=== PATIENT | male | born 1975 | race Caucasian/White ===

== ENCOUNTER 2023-01-31 15:27 | Emergency (ER) | payer BC, SELFPAY ==
[2023-01-31 15:29] VITALS: BP 165/95; PULSE 106; RESP 18; TEMP 36.4; O2SAT 98; BMI 33.3
--- NOTE | 2023-01-31 15:43 | CT_ITS ---
STUDY: CT ABDOMEN AND PELVIS WITHOUT CONTRAST REASON FOR EXAM: Male, 47 years old. Kidney Stone RADIATION DOSAGE (If Supplied By Facility): CTDIvol = ( 11.24 ) mGy, DLP = ( 606.72 ) mGycm TECHNIQUE: Transaxial images were obtained from the dome of the diaphragm to the symphysis pubis without oral contrast, and without intravenous contrast. Sagittal and coronal images were reconstructed. Individualized dose optimization techniques were used for this CT. COMPARISON: None. FINDINGS: The visualized lung bases are unremarkable. The visualized portions of the heart are within normal limits. Mild hepatic enlargement. There is mild hepatic steatosis. Normal gallbladder and extrahepatic biliary system. There is mild to moderate splenomegaly. Normal pancreas. Normal bilateral adrenal glands. There is moderate right hydronephrosis. There is moderate right renal edema. There is a distended appearance of the right ureter. At the level of the ureterovesicular junction at the level of the wall of the bladder there is a stone measuring 5.1 x 5.2 mm. Normal left kidney. There is a small hiatal hernia. Normal small intestine. There is mild to moderate stool in the colon. The appendix is visualized and appears normal. Normal abdominal aorta. Normal inferior vena cava. Normal retroperitoneum. As mentioned above there is a stone measuring 5.1 x 5.2 mm just at the level of the bladder in the ureterovesicular junction. Normal visualized prostate gland. There is a small umbilical hernia containing fat. At L5-S1 there is a broad disc bulge with mild neural foramina narrowing mild central stenosis. CT/Abdomen/Pelvis without Cont IMPRESSION: Moderate right renal edema. Moderate right hydronephrosis. 5.1 x 5.2 mm calculus right ureterovesicular junction. Enlarged liver and spleen. Fatty infiltration of the liver. No appendicitis. Degenerative change L5-S1. Electronically Signed: Isabella Richardson MD at 16:34 EDT Reading Location ID and State: [facility] [place] / [place] Tel , Service support ,
--- NOTE | 2023-01-31 15:44 | EX.ED.DYSGE1 ---
HPI History of Present Illness Chief Complaint: Flank Pain Informant: patient Narrative Narrative: 47-year-old male presenting to the emergency room with chief complaint of right flank pain. Patient states that about a month ago he was on vacation in the [facility] and developed right flank pain and was diagnosed with a 2 mm distal ureteral stone. He states this is his first stone and he passed it subsequently. He was told at that time he had another stone in the right kidney. Beginning on Monday he has had pain in the right flank radiating towards the right middle quadrant. He states it comes and goes sometimes dull and aching sometimes sharp stabbing. He did have some nausea. He did a televisit and was prescribed ketorolac. This is helped at times. He also has been taking a nausea medication which she does not remember the name of as well as Flomax. He denies any fever. No blood in the urine urinary frequency or dysuria. No reported diarrhea. He has had no prior surgeries. [facility] Medical History (Updated 01/31/23 @ 16:[address] Emmanuel Horne DO) Kidney stone on right side Home Medications No Known/Unobtainable [No Known Home Medications] 01/06/16 [History Last Taken Unknown] oxycodone-acetaminophen 5 mg-325 mg tablet 1 tab PO Q6H PRN PRN Pain 3 days #12 TABLETS 01/31/23 [Rx Last Taken Unknown] Allergy/AdvReac Type Severity Reaction Status Date / Time No Known Allergies Allergy Verified 01/31/23 15:29 Surgical History no surgical history no surgical history Social History Smoking Status: Never smoker ROS ROS ED Constitutional Constitutional ED: Denies chills or weight loss Eyes Eyes: Denies change in vision or diplopia ENT ENT ED: Denies ear pain, rhinorrhea or sore throat Cardiovascular Cardiovascular: Denies chest pain, orthopnea, palpitations or racing heartbeat Respiratory/Chest Respiratory/Chest: Denies cough, dyspnea or orthopnea Gastrointestinal Gastrointestinal: Reports abdominal pain and nausea; Denies diarrhea or vomiting Genitourinary Genitourinary ED: Denies dysuria, hematuria or urinary frequency Musculoskeletal Musculoskeletal: Reports back pain; Denies arthralgias or myalgias Integumentary Denies abscess or rash Neurologic Neurologic: Denies headache(s) or weakness Psychiatric Psychiatric: Denies anxiety, depression, suicidal ideation or suicidal thoughts Endocrine Endocrinology: Denies polydipsia, polyphagia or polyuria Allergic/Immunologic Allergic/Immunologic ED: Denies mouth swelling, tongue swelling or urticaria EXAM Physical Exam Const Vital Signs: 01/31/23 15:29 Temperature 97.5 F L Temperature Source Temporal Pulse Rate 106 H Respiratory Rate 18 Blood Pressure 165/95 H Blood Pressure Mean 118 Pulse Ox 98 Oxygen Delivery Method Room Air Positive well nourished and well developed General Appearance ED: well developed HEENT Reports normocephalic, head/scalp atraumatic and moist mucous membranes Eyes PERRL and EOMs intact bilaterally Neck no lymphadenopathy, supple and no JVD Resp normal respiratory effort and clear to auscultation bilaterally Cardio regular rate, regular rhythm and no murmurs GI normal to inspection, nondistended, normoactive bowel sounds and non-tender Palpation: soft Back/Spine no CVA tenderness and normal ROM Extremity normal to inspection General Extremety ED: Negative for edema General Extremity: Negative for edema Neuro oriented x3 and CN's II-XII intact bilaterally Sensorium / Orientation: alert Motor Exam: strength 5/5 throughout Psych mental status grossly normal Mood & Affect: Negative for depressed or tearful Skin no rashes or lesions noted and no wounds MDM MDM MDM Narrative Medical decision making narrative: IV was established the patient received Toradol morphine and Zofran. Basic blood work showed a elevation of his creatinine of 1.98 most likely due to hydronephrosis and possibly used to ketorolac at home. CT demonstrates a distal 5 mm stone with associated hydronephroureter. Patient overall feels improved. I am going to write for him to have Percocet at home. He has Flomax and nausea medications already. I advised him to discontinue the ketorolac. I would recommend urologic follow-up. Return if worsening or concerns Lab Data Attestation: I reviewed the patient's lab results. Labs: Laboratory Results - last 24 hr 01/31/23 01/31/23 15:50 16:39 WBC 7.7 RBC 4.68 Hgb 13.8 Hct 41.6 MCV 88.9 MCH 29.5 MCHC 33.2 RDW Std Deviation 38.4 RDW Coeff of Celia 12.0 Plt Count 190 MPV 9.3 Immature Gran % (Auto) 0.400 Neut % (Auto) 78.0 H Lymph % (Auto) 10.1 L Andrews % (Auto) 10.4 H Eos % (Auto) 0.7 Baso % (Auto) 0.4 Absolute Neuts (auto) 6.0 Absolute Lymphs (auto) 0.78 L Nucleated RBC % 0 Sodium 138 Potassium 4.0 Chloride 104 Carbon Dioxide 30.0 Anion Gap 4 L BUN 19 H Creatinine 1.98 H Estim Creat Clear Calc 42.52 Est GFR (MDRD) Af Amer 47 L Est GFR (MDRD) Non-Af 39 L BUN/Creatinine Ratio 9.6 L Glucose 116 H Calcium 8.8 Urine Color Yellow Urine Clarity Sl. Cloudy Urine pH 6.0 Ur Specific [place] 1.020 Urine Protein 15 H Urine Glucose (UA) Normal Urine Ketones Negative Urine Occult Blood 10 H Urine Nitrite Negative Urine Bilirubin Negative Urine Urobilinogen Normal Ur Leukocyte Esterase Negative Urine RBC 0-5 SEEN Urine WBC 0 SEEN Ur Squamous Epith Cells 0 SEEN Urine Bacteria 0 SEEN Urine Mucus 0 SEEN Radiography Diagnostic Testing: Clinical Impression(s) from Imaging Studies Abdomen/Pelvis CT 01/31/23 15:43 IMPRESSION: Moderate right renal edema. Moderate right hydronephrosis. 5.1 x 5.2 mm calculus right ureterovesicular junction. Enlarged liver and spleen. Fatty infiltration of the liver. No appendicitis. Degenerative change L5-S1. Electronically Signed: Isabella Richardson MD at 16:34 EDT Reading Location ID and State: [address] [place] [address] Tel , Service support , Discharge Plan Triage Chief Complaint: Flank Pain ED Provider: Emmanuel Horne Dx/Rx/DC Orders Clinical Impression: Acute kidney injury, Ureterolithiasis, Renal colic on right side Instructions: ED Kidney Stone w/ Colic Prescriptions: New oxycodone-acetaminophen [oxycodone-acetaminophen] 5-325 mg tablet 1 tab PO Q6H PRN PRN (Reason: Pain) 3 Days Qty: 12 0RF No Action No Known Home Medications Primary Care Provider: Ashutosh Barakat Referrals: Kareem Foreman MD [Med Staff - Active Staff] - As soon as possible Care Physician,No Primary [Non-Staff] - Disposition Disposition: Home, Self Care
[2023-01-31] MEDS: Ondansetron 4 MG/2 ML Vial IV (15:49)
[2023-01-31] MEDS: Morphine 4 MG/ML Syringe IV (15:49)
[2023-01-31] MEDS: Ketorolac 30 MG/ML Syringe IV (15:49)
[2023-01-31 15:59] LABS: Absolute Lymphocyte Count 0.78 X10^3/uL (0.83-4.51); Basophil# 0.03 X10^3/uL; Basophil% 0.4 % (0-1); Eosinophil# 0.05 X10^3/uL; Eosinophils% 0.7 % (0-5); Hematocrit 41.6 % (40-54); Hemoglobin 13.8 g/dL (13.0-16.5); Lymphocyte # 0.78 X10^3/ul (0.83-4.51); Lymphocyte % 10.1 % (19-41); Mean Corp Hgb Conc 33.2 g/dL (32-36); Mean Corpuscular Hgb 29.5 pg (27.0-32.0); Mean Corpuscular Volume 88.9 fL (80-94); Mean Platelet Vol. 9.3 fl (6.2-12.0); Monocyte% 10.4 % (0-10); NRBC Flagged by Analyzer 0 % (0-5); Platelet Count 190 K/mm3 (150-450); RBC Distribution Width SD 38.4 fl (35.1-43.9); Red Blood Count 4.68 M/mm3 (4.6-6.2); White Blood Count 7.7 K/mm3 (4.4-11.0)
[2023-01-31 16:15] LABS: Anion Gap 4 (5-15); BUN 19 mg/dL (7-18); BUN/Creat Ratio 9.6 RATIO (10-20); Calcium,Total 8.8 mg/dL (8.5-10.1); Chloride 104 mmol/L (98-107); Creatinine, Serum 1.98 mg/dL (0.70-1.30); EST Glomerular Filtration Rate 39 mL/min (>60); Est Glom Filt Rate - Afr Amer 47 mL/min (>60); Estimated Creatinine Clearance 42.52 ml/min; Glucose 116 mg/dL (74-106); Sodium Level 138 mmol/L (136-145)
[2023-01-31 16:44] LABS: Bacteria 0 SEEN /hpf (None Seen); Mucous, Urine 0 SEEN /hpf (<or=2+); Squamous Epithelial Cells - UA 0 SEEN /hpf (0-5); White Blood Cells 0 SEEN /hpf (0-5)
[2023-01-31 16:45] LABS: Color, Urine Yellow (Yellow); Glucose, Dipstick Normal (Normal); Ketone-Dipstick Negative (Negative); Leukocyte Esterase-Dipstick Negative /ul (Negative); Nitrite-Dipstick Negative (Negative); Occult Blood-Urine 10 /ul (Negative); Protein-Dipstick 15 mg/dl (Negative); Urine Bilirubin Dipstick Negative (Negative); Urine Clarity Sl. Cloudy (Clear); Urine Urobilinogen Normal (Normal)
[2023-01-31 16:53] LABS: Red Blood Cells-Urine 0-5 SEEN /hpf (0-5)
== END 2023-01-31 17:25 | disposition home or self-care (01) ==
PROVIDERS: Emergency Provider Emergency Medicine; PCP Family Medicine; Visit Provider Emergency Medicine
DX: N13.2 Hydronephrosis with renal and ureteral calculous obstruction (principal); N23 Unspecified renal colic
CPT/HCPCS: 74176; 80048; 81001; 85025; 99283; J7030; J2405